=== PATIENT | male | born 1940 | race Caucasian/White ===

== ENCOUNTER 2017-09-22 23:30 | Observation (INO) | payer MEDICARE ==
[~2017-09-22] VITALS: Ht 167.6 cm; Wt 71.0 kg
[~2017-09-22 23:30] MED LIST: ALBU0.086 NEB; CIPR500T4 PO; DOCU1CAP39 PO; OXYC1SOL5 PO
[2017-09-22] MEDS ORDERED: IOHEXOL 350 MG/ML 10 ML VIAL (for RAD DIAG) IVCONTRAST ONE (23:31)
[2017-09-22 23:35] VITALS: BP 150/90; PULSE 100; RESP 28; TEMP 97.6; O2SAT 86
[2017-09-23] VITALS (12 sets, daily range): BP systolic 114–171; BP diastolic 56–78; PULSE 80–111; RESP 18–24; TEMP 96.1–98.4; O2SAT 91–100
[2017-09-23] MEDS ORDERED: SODIUM CHLORIDE 0.9% FLUSH 10 ML FLUSH IVF PRN (00:15)
[2017-09-23] MEDS ORDERED: methylPREDNISolone SOD SUCC 125 MG/2 ML VIAL IV PUSH ONE (00:15)
[2017-09-23] MEDS: RESP: ALBUTEROL 2.5 MG/IPRATROPIUM 0.5 MG NEB (SCH) INH (00:24)
--- NOTE | 2017-09-23 00:35 | RADRPT ---
EXAM DATE/TIME: 09/23/2017 00:23 [facility] COMPARISON: CHEST PA & LAT, April 09, 2014, 8:03. CHEST SINGLE AP, June 10, 2015, 18:36. INDICATIONS : Shortness of breath. MEDICAL HISTORY : None. SURGICAL HISTORY : None. ENCOUNTER: Initial ACUITY: 1 day PAIN SCORE: 0/10 LOCATION: Bilateral chest FINDINGS: The heart size is normal. The lungs are hyperinflated. There is a 2 cm focal consolidation or mass se en in the left perihilar region. No effusion is seen. CONCLUSION: 1. Hyperinflated lungs. 2. Suspected 2 cm focal consolidation or mass in the left perihilar region. Wilfredo Colindres MD on September 23, 2017 at 0:29 Board Certified Radiologist. This report was verified electronically.
--- NOTE | 2017-09-23 00:47 | PD ---
HPI Chief Complaint: Respiratory Distress Time Seen by Provider: 23:56 Travel History International Travel<30 days: No Contact w/Intl Traveler<30days: No Traveled to known affect area: No History of Present Illness HPI The patient is a 76 year old male who presents to the [facility] emergency department with a history of worsening shortness of breath that began 3 weeks ago. The patient reports having a history of severe COPD. He reports that he was previously on ipratropium with his albuterol, however this was discontinued when he developed urinary retention. He reports that since then his COPD in general seems to be worse. He reports that he has had a dry cough that is been no worse than usual. He denies having any productivity to the cough. He denies having any fevers or chills. He denies having any chest pain. He reports that over the last 4 months he has had lower extremity edema. He denies having ultrasound to evaluate for possible DVT. He denies any prior history of PE or DVT. He denies any prior history of coronary artery disease or congestive heart failure. He reports that he does continue to smoke whenever he can get a hold of the cigarette. His last cigarette was one week ago. On review of systems otherwise, the patient denies having any neck pain, chest pain, abdominal pain, vomiting, diarrhea, urinary symptoms, or neurologic symptoms. [facility] Past Medical History Narrative Medical The patient's past medical history is significant for by 9 prosthetic hypertrophy status post prostatectomy, history of COPD, hypertension, history of pneumonia, depression, prior history of subdural hemorrhage Asthma: No Autoimmune Disease: No Heart Rhythm Problems: No Cancer: No Cardiovascular Problems: No High Cholesterol: No Chemotherapy: No Chest Pain: No Congestive Heart Failure: No COPD: Yes Cerebrovascular Accident: No Diabetes: No Endocrine: No Gastrointestinal Disorders: No GERD: No Genitourinary: Yes Headaches: No Hepatitis: No Hiatal Hernia: No Heparin Induced Thrombocytopen: No Hypertension: No Immune Disorder: No Implanted Vascular Access Dvce: No Kidney Stones: No Medical other: Yes (PNEUMONIA 15 YEARS- NOT HOSPITALIZED ) Musculoskeletal: No Neurologic: No Psychiatric: No Reproductive: No Respiratory: Yes (COPD) Immunizations Current: Yes Migraines: No Radiation Therapy: No Renal Failure: No Seizures: No Sickle Cell Disease: No Sleep Apnea: No Thyroid Disease: No Ulcer: No Tetanus Vaccination: Unknown Influenza Vaccination: Yes Past Surgical History Narrative Surgical The patient's past surgical history is significant for benign prostatic hypertrophy status post prostatectomy, history of cataract surgery Abdominal Surgery: No AICD: No Arteriovenous Shunt: No Cardiac Surgery: No Ear Surgery: No Endocrine Surgery: No Eye Surgery: Yes (RIGHT EYE ) Genitourinary Surgery: No Gynecologic Surgery: No Insulin Pump: No Joint Replacement: No Neurologic Surgery: No Oral Surgery: Yes (REAR MOLAR YEARS AGO REMOVED) Pacemaker: No Thoracic Surgery: No Other Surgery: Yes Social History Alcohol Use: No Tobacco Use: Yes (last cigarette last week) Substance Use: No Allergies-Medications (Allergen,Severity, Reaction): Coded Allergies: No Known Allergies (Unverified Allergy, Unknown, 09/23/17) Reported Meds & Prescriptions Reported Meds & Active Scripts Active Review of Systems Except as stated in HPI: all other systems reviewed are Neg General / Constitutional: No: Fever Eyes: No: Visual changes HENT: No: Headaches, Congestion Cardiovascular: Positive: Dyspnea on exertion, Edema, No: Chest Pain or Discomfort Respiratory: Positive: Cough, Shortness of Breath, Wheezing Gastrointestinal: No: Nausea, Vomiting, Diarrhea, Abdominal Pain Genitourinary: No: Dysuria Musculoskeletal: No: Pain Skin: No Rash Neurologic: No: Weakness, Focal Abnormalities, Change in Mentation, Slurred Speech, Sensory Disturbance Psychiatric: No: Depression Endocrine: No: Polydipsia Hematologic/Lymphatic: No: Easy Bruising Physical Exam Narrative General: The patient is a well-developed well-nourished male in no acute distress. Head and Neck exam: Head is normocephalic atraumatic. Eyes: EOMI, pupils are equal round and reactive to light. Nose: Midline septum with pink mucous membranes Mouth: Dentition unremarkable. Moist mucus membranes. Posterior oropharynx is not erythematous. No tonsillar hypertrophy. Uvula midline. Airway patent. Neck: No palpable lymphadenopathy. No nuchal rigidity. No thyromegaly. Cardiovascular: Regular rate and rhythm without murmurs, gallops, or rubs. Lungs: The patient has pursed lip breathing, prolonged expiratory phase of breathing, soft expiratory wheezes audible bilaterally. Decreased breath sounds in the bases. No rhonchi or crackles. The patient has no accessory muscle use noted. No tripoding. No paroxysmal abdominal breathing. Abdomen: Soft, without tenderness to palpation in all 4 quadrants of the abdomen. No guarding, rebound, or rigidity. Normal bowel sounds are audible. No tenderness on palpation of McBurney's point. Extremities: No clubbing or cyanosis. The patient has 2+ pitting edema bilateral lower extremities. 2+ pulses in all 4 extremities. No calf tenderness on palpation. Back: No costovertebral angle tenderness to palpation. Neurologic Exam: Grossly nonfocal. Skin Exam: No rash noted. Intact skin that is warm and dry. Data Data Last Documented VS Vital Signs Date Time Temp Pulse Resp B/P (MAP) Pulse Ox O2 Delivery O2 Flow Rate FiO2 09/23/17 02:20 91 22 145/78 (100) 98 Nasal Cannula 3.50 09/22/17 23:35 97.6 Orders Orders Complete Blood Count With Diff (09/23/17 00:09) Comprehensive Metabolic Panel (09/23/17 00:09) B-Type Natriuretic Peptide (09/23/17 00:09) Act Partial Throm Time (Ptt) (09/23/17 00:09) Prothrombin Time / Inr (Pt) (09/23/17 00:09) Magnesium (Mg) (09/23/17 00:09) Ckmb (Isoenzyme) Profile (09/23/17 00:09) Troponin I (09/23/17 00:09) Urinalysis - C+S If Indicated (09/23/17 00:09) Iv Access Insert/Monitor (09/23/17 00:09) Electrocardiogram (09/23/17 00:09) Ecg Monitoring (09/23/17 00:09) Oximetry (09/23/17 00:09) Oxygen Administration (09/23/17 00:09) Chest, Single Ap (09/23/17 00:09) Sodium Chloride 0.9% Flush (Ns Flush) (09/23/17 00:15) Methylprednisolone So Succ Inj (Solumedr (09/23/17 00:15) Albuterol-Ipratropium Neb (Duoneb Neb) (09/23/17 00:15) Us Leg Venous Doppler Bilat (09/23/17 00:19) Ct Pulmonary Angiogram (09/23/17 01:22) Levofloxacin 750 Mg Premix Inj (Levaquin (09/23/17 02:00) Iohexol 350 Inj (Omnipaque 350 Inj) (09/22/17 23:31) Admit Order (Ed Use Only) (09/23/17 02:36) Labs Laboratory Tests Test 09/23/17 00:35 White Blood Count 5.9 TH/MM3 Red Blood Count 6.30 MIL/MM3 Hemoglobin 17.6 GM/DL Hematocrit 56.8 % Mean Corpuscular Volume 90.2 FL Mean Corpuscular Hemoglobin 27.9 PG Mean Corpuscular Hemoglobin Concent 31.0 % Red Cell Distribution Width 17.0 % Platelet Count 116 TH/MM3 Mean Platelet Volume 9.1 FL Neutrophils (%) (Auto) 62.5 % Lymphocytes (%) (Auto) 15.0 % Monocytes (%) (Auto) 19.9 % Eosinophils (%) (Auto) 1.6 % Basophils (%) (Auto) 1.0 % Neutrophils # (Auto) 3.7 TH/MM3 Lymphocytes # (Auto) 0.9 TH/MM3 Monocytes # (Auto) 1.2 TH/MM3 Eosinophils # (Auto) 0.1 TH/MM3 Basophils # (Auto) 0.1 TH/MM3 CBC Comment DIFF FINAL Differential Comment Prothrombin Time 12.4 SEC Prothromb Time International Ratio 1.1 RATIO Activated Partial Thromboplast Time 28.0 SEC Blood Urea Nitrogen 34 MG/DL Creatinine 1.30 MG/DL Random Glucose 96 MG/DL Total Protein 7.4 GM/DL Albumin 3.2 GM/DL Calcium Level 8.6 MG/DL Magnesium Level 2.0 MG/DL Alkaline Phosphatase 86 U/L Aspartate Amino Transf (AST/SGOT) 24 U/L Alanine Aminotransferase (ALT/SGPT) 38 U/L Total Bilirubin 0.5 MG/DL Sodium Level 139 MEQ/L Potassium Level 5.0 MEQ/L Chloride Level 100 MEQ/L Carbon Dioxide Level 37.7 MEQ/L Anion Gap 1 MEQ/L Estimat Glomerular Filtration Rate 53 ML/MIN Total Creatine Kinase 58 U/L Troponin I 0.05 NG/ML B-Type Natriuretic Peptide 755 PG/ML MDM Medical Decision Making Medical Screen Exam Complete: Yes Emergency Medical Condition: Yes Medical Record Reviewed: Yes Differential Diagnosis COPD exacerbation, versus pneumothorax, versus pneumonia, versus new-onset congestive heart failure, versus acute coronary syndrome Narrative Course During the course of the patients emergency department visit, the patients history, examination, and differential diagnosis were reviewed with the patient. The patient was placed on a phototypesetting equipment monitor with oximetry and frequent blood pressure monitoring. The patient had IV access obtained and blood work sent for analysis. An ECG was done that shows a rhythm with a heart rate of 81 , with occasional ventricular premature complexes, QRS duration 90 ms, QTC 404 ms, no acute ST segment elevation or depression. The patient was initially provided DuoNeb 3, Solu-Medrol 125 mg IV, Levaquin 750 mg IV. The patients laboratory studies were reviewed and remarkable for a white count of 5.9, hemoglobin 17.6, platelets 116 with 19.9 monocytes, CMP is remarkable for CO2 of 37.7, BUN 34, GFR 53, BNP 755, PT 12.4, PTT 28 Radiology studies were reviewed and remarkable for a chest x-ray that shows hyperinflated lungs, suspected 2 cm focal consolidation or mass in the left perihilar region. Ultrasound of bilateral lower extremities reveals no evidence of DVT. CTA to rule out PE reveals no evidence of pulmonary embolism, 0.9 cm irregular mass in the anterior lateral right mid lung that is nonspecific and could be further evaluated with a PET CT. suspected chronic pleural and parenchymal changes in the upper lungs, suspected areas of atelectasis in the left base. The patients results were discussed with the patient, including the plan of care. I explained that further testing and/ or monitoring is indicated based on the patients history, examination, and/ or laboratory findings. Therefore, I recommended admission for additional evaluation. The patient expressed understanding and was agreeable with this plan. The patient was admitted to the hospital in stable condition and sent to a bed under the care of the [facility]. Physician Communication Physician Communication The patient's case including history, pertinent physical examination findings, and laboratory studies were discussed with Dr. Pichardo. It was agreed that the patient would be admitted to the [facility] service. Diagnosis Primary Impression: COPD exacerbation Additional Impression: Pneumonia involving left lung Qualified Codes: J18.9 - Pneumonia, unspecified organism Admitting Information Admitting Physician Requests: Admit Fidelia Whittaker MD Sep 23, 2017 00:47
[2017-09-23 01:05] LABS: AUTOMATED NEUTROPHIL # 3.7 TH/MM3 (1.8-7.7); BASOPHIL # 0.1 TH/MM3 (0-0.2); EOSINOPHIL # 0.1 TH/MM3 (0-0.4); EOSINOPHIL % 1.6 % (0.0-4.0); HEMATOCRIT 56.8 % (39.0-51.0); HEMO FLAGS DIFF FINAL; LYMPHOCYTE # 0.9 TH/MM3 (1.0-4.8); MEAN CELL VOLUME 90.2 FL (80.0-100.0); MEAN CORPUSCULAR HEMOGLOBIN 27.9 PG (27.0-34.0); MONO % 19.9 % (0.0-8.0); NEUT % 62.5 % (16.0-70.0); PLATELET COUNT 116 TH/MM3 (150-450); WHITE BLOOD COUNT 5.9 TH/MM3 (4.0-11.0)
[2017-09-23 01:19] LABS: ALT (GPT) 38 U/L (12-78); ANION GAP 1 MEQ/L (5-15); AST (GOT) 24 U/L (15-37); BICARBONATE 37.7 MEQ/L (21.0-32.0); BLOOD UREA NITROGEN 34 MG/DL (7-18); CHLORIDE 100 MEQ/L (98-107); GLOMERULAR FILTRATION RATE 53 ML/MIN (>89); SODIUM (NA) 139 MEQ/L (136-145)
[2017-09-23 01:23] LABS: ALKALINE PHOSPHATASE 86 U/L (45-117); TOTAL BILIRUBIN ADULT 0.5 MG/DL (0.2-1.0)
[2017-09-23 01:24] LABS: CREATINE KINASE 58 U/L (39-308)
[2017-09-23 01:33] LABS: INTERNATIONAL NORMALIZED RATIO 1.1 RATIO; PROTHROMBIN TIME - PATIENT 12.4 SEC (9.8-11.6)
--- NOTE | 2017-09-23 01:53 | RADRPT ---
EXAM DATE/TIME: 09/23/2017 01:22 [facility] COMPARISON: No previous studies available for comparison. INDICATIONS : Bilateral leg swelling. MEDICAL HISTORY : COPD. Dyspnea. SURGICAL HISTORY : Right eye surgery. Rear molar removed. ENCOUNTER: Initial ACUITY: 2 months PAIN SCORE: 2/10 LOCATION: Bilateral legs. TECHNIQUE: Venous ultrasound of the left and right leg was performed from the inguinal ligament to the proximal calf. Real-time, color Doppler and spectral tracing, compression and augmentation techniques were us ed. FINDINGS: RIGHT LEG: There is normal compressibility of the deep venous system from the inguinal region to the proximal ca lf. No echogenic clot is seen in the lumen of the common femoral, femoral, popliteal, and posterior tibial veins. There is a normal response of the venous system to proximal and distal augmentation an d respiration. LEFT LEG: There is normal compressibility of the deep venous system from the inguinal region to the proximal ca lf. No echogenic clot is seen in the lumen of the common femoral, femoral, popliteal, and posterior tibial veins. There is a normal response of the venous system to proximal and distal augmentation an d respiration. CONCLUSION: No DVT. Wilfredo Colindres MD on September 23, 2017 at 1:51 Board Certified Radiologist. This report was verified electronically.
[2017-09-23] MEDS ORDERED: LEVOFLOXACIN 750 MG PREMIX INJ 150 ML IV ONE (02:00)
--- NOTE | 2017-09-23 02:24 | RADRPT ---
EXAM DATE/TIME: 09/23/2017 01:51 [facility] COMPARISON: No previous studies available for comparison. INDICATIONS : Shortness of breath; rule out pulmonary embolus IV CONTRAST: 75 cc Omnipaque 350 (iohexol) IV RADIATION DOSE: 23.18 CTDIvol (mGy) MEDICAL HISTORY : Chronic obstructive pulmonary disease. SURGICAL HISTORY : Prostatectomy. ENCOUNTER: Initial ACUITY: 1 day PAIN SCALE: 3/10 LOCATION: chest TECHNIQUE: Volumetric scanning of the chest was performed using a pulmonary embolism protocol MIP images were re constructed. Using automated exposure control and adjustment of the mA and/or kV according to patien t size, radiation dose was kept as low as reasonably achievable to obtain optimal diagnostic quality images. DICOM format image data is available electronically for review and comparison. Follow-up recommendations for detected pulmonary nodules are based at a minimum on nodule size and pa tient risk factors according to Fleischner Society Guidelines. FINDINGS: PULMONARY ARTERIES: No filling defects are seen in the pulmonary arteries through the segmental level. LUNGS: There is prominent emphysematous change seen in the upper and mid lungs. There is relative sparing of the bases. There is chronic appearing pleural-parenchymal change the upper lungs. Calcified plaques are seen posteriorly in the upper lungs. There is a 0.9 cm irregular focal density in the anterior la teral mid right lung. There are multiple areas of suspected atelectasis or consolidation at the left base. PLEURAE: Calcified plaques are seen in the posterior upper lungs. MEDIASTINUM: There is good visualization of the great vessels of the middle mediastinum. No evidence of mediastin al or hilar adenopathy/mass. MUSCULOSKELETAL: Within normal limits for patient age. Coronary artery calcifications are present. MISCELLANEOUS: The visualized upper abdominal organs demonstrate no acute abnormality. CONCLUSION: 1. No pulmonary embolus. 2. Chronic emphysematous change. 3. 0.9 cm irregular mass in the anterior lateral right mid lung. This is nonspecific. This could be f urther evaluated with a PET CT study to determine if it is metabolically active. Alternatively, a kennedy rt term followup examination in 3 months could be performed. 4. Suspected chronic pleural and parenchymal changes in the upper lungs. 5. Suspected areas of atelectasis at the left base. Wilfredo Colindres MD on September 23, 2017 at 2:18 Board Certified Radiologist. This report was verified electronically.
[2017-09-23] MEDS ORDERED: RESP: ALBUTEROL 1.25 MG/3 ML NEB (PRN) NEB (02:45)
[2017-09-23] MEDS ORDERED: breathing treatment INH (03:24)
[2017-09-23 04:34] LABS: AUTOMATED NEUTROPHIL # 4.3 TH/MM3 (1.8-7.7); BASOPHIL % 0.4 % (0.0-2.0); EOSINOPHIL % 0.1 % (0.0-4.0); HEMATOCRIT 52.6 % (39.0-51.0); HEMO FLAGS DIFF FINAL; LYMPH % 3.3 % (9.0-44.0); LYMPHOCYTE # 0.1 TH/MM3 (1.0-4.8); MEAN CELL VOLUME 89.7 FL (80.0-100.0); MEAN CORPUSCULAR HEMOGLOBIN 27.5 PG (27.0-34.0); MEAN CORPUSCULAR HGB CONC 30.7 % (32.0-36.0); MONO % 2.3 % (0.0-8.0); NEUT % 93.9 % (16.0-70.0); PLATELET COUNT 124 TH/MM3 (150-450); RED BLOOD COUNT 5.87 MIL/MM3 (4.50-5.90); RED CELL DISTRIBUTION WIDTH 17.1 % (11.6-17.2); WHITE BLOOD COUNT 4.5 TH/MM3 (4.0-11.0)
[2017-09-23] MEDS: RESP: ALBUTEROL 2.5 MG/IPRATROPIUM 0.5 MG NEB (SCH) NEB ×3 (07:45→19:16)
--- NOTE | 2017-09-23 08:20 | HHI.HP ---
HPI Service [facility] Hospitalists Primary Care Physician Lorraine Clement Jr, MD Admission Diagnosis COPD exacerbation, lung mass, infiltrate Chief Complaint: progressive worsening SOB x 3 weeks Travel History International Travel<30 Days: No Contact w/Intl Traveler <30 Da: No Traveled to Known Affected Are: No History of Present Illness The patient is a 76 year old male with past medical history which includes Bronchiectasis, ? pulmonary fibrosis followed by Dr. Shields, COPD, BPH status post prostatectomy and subdural hematoma 2013. Patient presents to the [facility] emergency department due to worsening shortness of breath that began 3 weeks ago. Patient reports he is to the point that he has difficult walking back and forth to the bathroom due to shortness of breath. The patient reports having a history of severe COPD. PFT from 2014 reveals FEV1 31%. 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 He reports that he has had a dry nonproductive cough that is been no worse than his usual. He reports that over the last 4 months he has had lower extremity edema for which she is taking Lasix. Bilateral lower extremity ultrasound reveals no DVT. CT angiogram reveals no pulmonary embolism. He denies any prior history of coronary artery disease or congestive heart failure. He reports that he started smoking at age 3 and does continued to smoke up until one week ago. Patient denies having any fevers/chills, chest pain, abdominal pain, vomiting, diarrhea. Patient reports decreased appetite and weight loss over the last 3 weeks. Patient also report small are of erythema to penis if he does not wash the penis daily. Which has been an intermitted problem over the last 6 years. Review of Systems Constitutional: DENIES: Fatigue, Fever, Chills Eyes: DENIES: Blurred vision, Diplopia, Vision loss Respiratory: COMPLAINS OF: Cough, Shortness of breath, DENIES: Sputum production Cardiovascular: COMPLAINS OF: Lower Extremity Edema, DENIES: Chest pain, Dyspnea on Exertion Gastrointestinal: DENIES: Abdominal pain, Constipation, Diarrhea Neurologic: DENIES: Abnormal gait, Headache, Localized weakness, Speech Problems Psychiatric: DENIES: Anxiety, Confusion, Depression Past Family Social History Past Medical History Pulmonary fibrosis followed by Dr. Shields, COPD, BPH status post prostatectomy and subdural hematoma 2013 Past Surgical History Bilateral cataract surgery and open prostatectomy Reported Medications Aspirin 81 mg daily Lasix 20 mg by mouth twice a day Potassium 20 mEq by mouth daily Symbicort 2 puffs twice a day Ventolin rescue inhaler as needed Allergies: Coded Allergies: No Known Allergies (Unverified Allergy, Unknown, 09/23/17) Active Ordered Medications Current Medications Medications (Trade) Dose Ordered Sig/Svitlana Route Start Time Stop Time Status Last Admin (NS Flush) 2 ml UNSCH PRN IVF 09/23/17 00:15 (Duoneb Neb) 1 ampule Q6HR WHILE AWAKE NEB NEB 09/23/17 08:00 09/23/17 07:45 (Albuterol Neb) 1.25 mg Q2HR NEB PRN NEB 09/23/17 02:45 (SoluMEDROL INJ) 40 mg Q12HR IV PUSH 09/23/17 09:00 Family History Father secondary to stomach tumor Mother secondary to old age Social History Patient has a home where his disabled daughter lives and also has a girlfriend that he states with occasionally Denies EtOH use or illicit drug use Started smoking cigarettes at age 3 continued to smoke until 1 week ago Physical Exam Vital Signs Vital Signs Date Time Temp Pulse Resp B/P (MAP) Pulse Ox O2 Delivery O2 Flow Rate FiO2 09/23/17 07:47 100 Nasal Cannula 3.00 09/23/17 07:11 96.2 86 24 115/56 (75) 95 09/23/17 05:38 98.4 80 18 130/62 (84) 97 09/23/17 03:53 82 22 145/78 (100) 92 Nasal Cannula 3.50 09/23/17 03:38 98 Nasal Cannula 3.00 09/23/17 02:20 91 22 145/78 (100) 98 Nasal Cannula 3.50 09/23/17 01:08 92 Nasal Cannula 2.00 09/23/17 01:07 81 24 171/74 (106) 92 Nasal Cannula 2.00 09/23/17 00:00 Nasal Cannula 2.00 09/22/17 23:35 97.6 100 28 150/90 (110) 86 Room Air Physical Exam GENERAL: This is a thin, well-developed patient, in no apparent distress. SKIN: healing scab right forearm. small are of erythema noted on the penis < 2cm, no drainage or discharge noted HEAD: Atraumatic. Normocephalic. No temporal or scalp tenderness. EYES: Extraocular motions intact. No scleral icterus. No injection or drainage. CARDIOVASCULAR: Regular rate and rhythm RESPIRATORY: decreased through out with poor air entry GASTROINTESTINAL: Abdomen soft, non-tender, nondistended. MUSCULOSKELETAL: Extremities with 2+ edema. No joint tenderness, effusion, or edema noted. No calf tenderness. Negative Homans sign bilaterally. NEUROLOGICAL: Awake and alert. Cranial nerves II through XII intact. Motor and sensory grossly within normal limits. Five out of 5 muscle strength in all muscle groups. Normal speech. Laboratory Laboratory Tests Test 09/23/17 00:35 09/23/17 04:14 White Blood Count 5.9 4.5 Red Blood Count 6.30 5.87 Hemoglobin 17.6 16.1 Hematocrit 56.8 52.6 Mean Corpuscular Volume 90.2 89.7 Mean Corpuscular Hemoglobin 27.9 27.5 Mean Corpuscular Hemoglobin Concent 31.0 30.7 Red Cell Distribution Width 17.0 17.1 Platelet Count 116 124 Mean Platelet Volume 9.1 9.1 Neutrophils (%) (Auto) 62.5 93.9 Lymphocytes (%) (Auto) 15.0 3.3 Monocytes (%) (Auto) 19.9 2.3 Eosinophils (%) (Auto) 1.6 0.1 Basophils (%) (Auto) 1.0 0.4 Neutrophils # (Auto) 3.7 4.3 Lymphocytes # (Auto) 0.9 0.1 Monocytes # (Auto) 1.2 0.1 Eosinophils # (Auto) 0.1 0.0 Basophils # (Auto) 0.1 0.0 CBC Comment DIFF FINAL DIFF FINAL Differential Comment Prothrombin Time 12.4 Prothromb Time International Ratio 1.1 Activated Partial Thromboplast Time 28.0 Blood Urea Nitrogen 34 Creatinine 1.30 Random Glucose 96 Total Protein 7.4 Albumin 3.2 Calcium Level 8.6 Magnesium Level 2.0 Alkaline Phosphatase 86 Aspartate Amino Transf (AST/SGOT) 24 Alanine Aminotransferase (ALT/SGPT) 38 Total Bilirubin 0.5 Sodium Level 139 Potassium Level 5.0 Chloride Level 100 Carbon Dioxide Level 37.7 Anion Gap 1 Estimat Glomerular Filtration Rate 53 Total Creatine Kinase 58 Troponin I 0.05 B-Type Natriuretic Peptide 755 Date/Time Source Procedure Growth Status 09/23/17 03:05 Blood Peripheral Aerobic Blood Culture Pending Received 09/23/17 03:05 Blood Peripheral Anaerobic Blood Culture Pending Received Result Diagram: 09/23/17 0414 09/23/17 0035 Caprini VTE Risk Assessment Caprini VTE Risk Assessment: Mod/High Risk (score >= 2) Caprini Risk Assessment Model Point Value = 1 Point Value = 2 Point Value = 3 Point Value = 5 Age 41-60 Minor surgery BMI > 25 kg/m2 Swollen legs Varicose veins or History of unexplained or recurrent spontaneous Oral contraceptives or hormone replacement Sepsis (< 1 month) Serious lung disease, including pneumonia (< 1 month) Abnormal pulmonary function Acute myocardial infarction Congestive heart failure (< 1 month) History of inflammatory bowel disease Medical patient at bed rest Age 61-74 Arthroscopic surgery Major open surgery (> 45 min) Laparoscopic surgery (> 45 min) Malignancy Confined to bed (> 72 hours) Immobilizing plaster cast Central venous access Age >= 75 History of VTE Family history of VTE Factor V Leiden Prothrombin [id number] Lupus anticoagulant Anticardiolipin antibodies Elevated serum homocysteine Heparin-induced thrombocytopenia Other congenital or acquired thrombophilia Stroke (< 1 month) Elective arthroplasty Hip, pelvis, or leg fracture Acute spinal cord injury (< 1 month) Prophylaxis Regimen Total Risk Factor Score Risk Level Prophylaxis Regimen 0-1 Low Early ambulation 2 Moderate Order ONE of the following: *Sequential Compression Device (SCD) *Heparin 5000 units SQ BID 3-4 Higher Order ONE of the following medications: *Heparin 5000 units SQ TID *Enoxaparin/Lovenox 40 mg SQ daily (WT < 150 kg, CrCl > 30 mL/min) *Enoxaparin/Lovenox 30 mg SQ daily (WT < 150 kg, CrCl > 10-29 mL/min) *Enoxaparin/Lovenox 30 mg SQ BID (WT < 150 kg, CrCl > 30 mL/min) AND/OR *Sequential Compression Device (SCD) 5 or more Highest Order ONE of the following medications: *Heparin 5000 units SQ TID (Preferred with Epidurals) *Enoxaparin/Lovenox 40 mg SQ daily (WT < 150 kg, CrCl > 30 mL/min) *Enoxaparin/Lovenox 30 mg SQ daily (WT < 150 kg, CrCl > 10-29 mL/min) *Enoxaparin/Lovenox 30 mg SQ BID (WT < 150 kg, CrCl > 30 mL/min) AND *Sequential Compression Device (SCD) Assessment and Plan Problem List: (1) COPD exacerbation ICD Codes: J44.1 - COPD exacerbation Status: Acute Plan: COPD exacerbation Bronchiectasis Shortness of breath CT angiogram reveals no pulmonary embolism does however reveal chronic specific changes. 0.9 cm irregular mass in the anterior lateral mid right lung. This is nonspecific recommend follow-up evaluation with head CT study or follow-up CT in 3 months could be performed. Albuterol nebulizers every 2 hours as needed Duonebs nebs every 6 hours while awake Solu-Medrol 125 mg IV 1 given in emergency Department Cymetra 40 mg IV every 12 hours as Levaquin 7501 given in emergency department Will order 2 D echocardiogram to evaluate EF and Pulmonary pressure Walk test tomorrow to evaluate need for home oxygen Possible Pulmonary fibrosis followed by Dr. Shields Patient wears 2 L oxygen via nasal cannula at home Recommend patient continue outpatient follow-up with Dr. Shields once discharged Bilateral lower extremity edema Chronic Continue patient's home Lasix 20 mg by mouth twice a day with potassium supplementation Bilateral lower extremity ultrasound reviewed and negative for DVT Will order 2 D echocardiogram to evaluate EF and Pulmonary pressure Bactroban and nystatin to affected area on penis Q12H patient instructed to follow up with PCP if this does not resolve DVT prophylaxis with heparin SQ (2) Tobacco abuse ICD Codes: Z72.0 - Tobacco abuse Status: Acute Assessment and Plan Patient examined. Assessment and plan formulated with Jackie Dia PA-C. I agree with the above. copd exacerbation. walk test. cont steroid/nebs echo pending. Jackie Dia Sep 23, 2017 08:20 Guerrero Polanco MD Sep 23, 2017 12:42
--- NOTE | 2017-09-23 08:28 | EKG ---
Date Performed: 09/23/2017 Time Performed: 01:04:22 PTAGE: 76 years EKG: Sinus rhythm WITH OCCASIONAL VENTRICULAR PREMATURE COMPLEXES WITH FREQUENT SUPRAVENTRICULAR PREMATURE COMPLEXES P OSSIBLE ARM LEAD REVERSAL ANTEROSEPTAL MYOCARDIAL INFARCTION PREVIOUS TRACING : 09/29/2015 14.30 Compared to previous tracing, possible arm lead rever andriy and PVC is now present. DOCTOR: Christian Garcia Interpretating Date/Time 09/23/2017 08:27:35
[2017-09-23] MEDS ORDERED: methylPREDNISolone SOD SUCC 40 MG/1 ML VIAL IV PUSH SCH (09:00)
[2017-09-23] MEDS ORDERED: POTA-163 PO (09:50)
[2017-09-23] MEDS ORDERED: SYMB160A INH (09:50)
[2017-09-23] MEDS ORDERED: ASPI-516 CHEW (09:50)
[2017-09-23] MEDS ORDERED: FURO1TAB62 PO (09:50)
[2017-09-23] MEDS: BUDESONIDE-FORMOTEROL 160/4.5 MCG INHALER INH SCH ×2 (10:00→20:38)
[2017-09-23] MEDS: methylPREDNISolone SOD SUCC 125 MG/2 ML VIAL IV PUSH SCH ×2 (13:32→20:38)
[2017-09-23] MEDS ORDERED: OXYGENDME NAS.CANULA (15:52)
[2017-09-23] MEDS ORDERED: OXYGENTANK NAS.CANULA (15:52)
[2017-09-23] MEDS: MUPIROCIN 2% OINT 22 GM TUBE TOPICAL SCH (20:38)
[2017-09-23] MEDS: HEPARIN SODIUM - SQ 10,000 UNITS/ML VIAL SQ SCH (20:38)
[2017-09-23] MEDS: FUROSEMIDE 20 MG TAB PO SCH (20:38)
[2017-09-23] MEDS: NYSTATIN 100,000 UNIT/GM CREAM 15 GM TOPICAL SCH (20:39)
[2017-09-24] MEDS: methylPREDNISolone SOD SUCC 125 MG/2 ML VIAL IV PUSH SCH ×3 (02:29→21:11)
[2017-09-24 04:51] VITALS: BP 134/54; PULSE 92; RESP 18; TEMP 97.8
[2017-09-24 05:10] LABS: BLOOD, URINE NEG (NEG); GLUCOSE,URINE NEG (NEG); HYALINE CAST, URINE 1 /lpf (RARE); KETONE, URINE NEG (NEG); MUCUS URINE FEW /lpf (OCC); NITRITE,URINE NEG (NEG); URINE COLOR LIGHT-YELLOW (YELLW/STRAW)
[2017-09-24 05:12] LABS: COMMENT (UR) CULT NOT INDICATED; CULTURE IF INDICATED CULT NOT INDICATED
[2017-09-24 07:21] VITALS: BP 106/58; PULSE 73; RESP 20; TEMP 98; O2SAT 95
[2017-09-24] MEDS: BUDESONIDE-FORMOTEROL 160/4.5 MCG INHALER INH SCH ×2 (08:08→21:00)
[2017-09-24] MEDS: FUROSEMIDE 20 MG TAB PO SCH ×2 (08:09→21:11)
[2017-09-24] MEDS: HEPARIN SODIUM - SQ 10,000 UNITS/ML VIAL SQ SCH ×2 (08:11→21:11)
[2017-09-24] MEDS: MUPIROCIN 2% OINT 22 GM TUBE TOPICAL SCH ×2 (08:12→21:14)
[2017-09-24] MEDS: NYSTATIN 100,000 UNIT/GM CREAM 15 GM TOPICAL SCH ×2 (08:12→21:14)
[2017-09-24] MEDS: RESP: ALBUTEROL 2.5 MG/IPRATROPIUM 0.5 MG NEB (SCH) NEB ×3 (08:26→20:23)
[2017-09-24 08:28] VITALS: O2SAT 94
--- NOTE | 2017-09-24 08:41 | HHI.PR ---
Subjective Remarks Patient reports his breathing and BLE edema have both improved since yesterday now report feeling unsteady on his feet Objective Vitals Vital Signs Date Time Temp Pulse Resp B/P (MAP) Pulse Ox O2 Delivery O2 Flow Rate FiO2 09/24/17 08:28 94 Nasal Cannula 3.00 09/24/17 07:21 98.0 73 20 106/58 (74) 95 09/24/17 04:51 97.8 92 18 134/54 (80) 09/24/17 03:36 Nasal Cannula 3.00 09/23/17 22:10 97.8 108 18 118/57 (77) 91 09/23/17 19:17 94 Nasal Cannula 3.00 09/23/17 15:13 96 09/23/17 15:05 96.1 108 24 114/56 (75) 93 09/23/17 14:57 3.00 09/23/17 12:25 97.5 111 20 118/61 (80) 95 Result Diagram: 09/23/17 0414 09/23/17 0035 Other Results Laboratory Tests Test 09/23/17 00:35 09/23/17 04:14 09/24/17 04:33 White Blood Count 5.9 TH/MM3 4.5 TH/MM3 Red Blood Count 6.30 MIL/MM3 5.87 MIL/MM3 Hemoglobin 17.6 GM/DL 16.1 GM/DL Hematocrit 56.8 % 52.6 % Mean Corpuscular Volume 90.2 FL 89.7 FL Mean Corpuscular Hemoglobin 27.9 PG 27.5 PG Mean Corpuscular Hemoglobin Concent 31.0 % 30.7 % Red Cell Distribution Width 17.0 % 17.1 % Platelet Count 116 TH/MM3 124 TH/MM3 Mean Platelet Volume 9.1 FL 9.1 FL Neutrophils (%) (Auto) 62.5 % 93.9 % Lymphocytes (%) (Auto) 15.0 % 3.3 % Monocytes (%) (Auto) 19.9 % 2.3 % Eosinophils (%) (Auto) 1.6 % 0.1 % Basophils (%) (Auto) 1.0 % 0.4 % Neutrophils # (Auto) 3.7 TH/MM3 4.3 TH/MM3 Lymphocytes # (Auto) 0.9 TH/MM3 0.1 TH/MM3 Monocytes # (Auto) 1.2 TH/MM3 0.1 TH/MM3 Eosinophils # (Auto) 0.1 TH/MM3 0.0 TH/MM3 Basophils # (Auto) 0.1 TH/MM3 0.0 TH/MM3 CBC Comment DIFF FINAL DIFF FINAL Differential Comment Prothrombin Time 12.4 SEC Prothromb Time International Ratio 1.1 RATIO Activated Partial Thromboplast Time 28.0 SEC Blood Urea Nitrogen 34 MG/DL Creatinine 1.30 MG/DL Random Glucose 96 MG/DL Total Protein 7.4 GM/DL Albumin 3.2 GM/DL Calcium Level 8.6 MG/DL Magnesium Level 2.0 MG/DL Alkaline Phosphatase 86 U/L Aspartate Amino Transf (AST/SGOT) 24 U/L Alanine Aminotransferase (ALT/SGPT) 38 U/L Total Bilirubin 0.5 MG/DL Sodium Level 139 MEQ/L Potassium Level 5.0 MEQ/L Chloride Level 100 MEQ/L Carbon Dioxide Level 37.7 MEQ/L Anion Gap 1 MEQ/L Estimat Glomerular Filtration Rate 53 ML/MIN Total Creatine Kinase 58 U/L Troponin I 0.05 NG/ML B-Type Natriuretic Peptide 755 PG/ML Urine Color LIGHT-YELLOW Urine Turbidity CLEAR Urine pH 5.0 Urine Specific [place] 1.008 Urine Protein NEG mg/dL Urine Glucose (UA) NEG mg/dL Urine Ketones NEG mg/dL Urine Occult Blood NEG Urine Nitrite NEG Urine Bilirubin NEG Urine Urobilinogen LESS THAN 2.0 MG/DL Urine Leukocyte Esterase NEG Urine RBC 1 /hpf Urine WBC LESS THAN 1 /hpf Urine Hyaline Casts 1 /lpf Urine Mucus FEW /lpf Microscopic Urinalysis Comment CULT NOT INDICATED Imaging Last Impressions CT Angiography 09/23/17 0122 Signed Impressions: Service Date/Time: Saturday, September 23, 2017 01:51 - CONCLUSION: 1. No pulmonary embolus. 2. Chronic emphysematous change. 3. 0.9 cm irregular mass in the anterior lateral right mid lung. This is nonspecific. This could be further evaluated with a PET CT study to determine if it is metabolically active. Alternatively, a short term followup examination in 3 months could be performed. 4. Suspected chronic pleural and parenchymal changes in the upper lungs. 5. Suspected areas of atelectasis at the left base. Wilfredo Colindres MD Lower Extremity Ultrasound 09/23/17 0019 Signed Impressions: Service Date/Time: Saturday, September 23, 2017 01:22 - CONCLUSION: No DVT. Wilfredo Colindres MD Chest X-Ray 09/23/17 0009 Signed Impressions: Service Date/Time: Saturday, September 23, 2017 00:23 - CONCLUSION: 1. Hyperinflated lungs. 2. Suspected 2 cm focal consolidation or mass in the left perihilar region. Wilfredo Colindres MD Objective Remarks GENERAL: This is a thin, well-developed patient, in no apparent distress. CARDIOVASCULAR: Regular rate and rhythm RESPIRATORY: improved from yesterday now with more air movement, no wheezing, rhonchi or rales GASTROINTESTINAL: Abdomen soft, non-tender, nondistended. MUSCULOSKELETAL: Extremities with 2+ edema. No joint tenderness, effusion, or edema noted. No calf tenderness. Negative Homans sign bilaterally. NEUROLOGICAL: Awake and alert. No focal deficits. Motor and sensory grossly within normal limits. 4-5 out of 5 muscle strength in all muscle groups. Normal speech. A/P Problem List: (1) COPD exacerbation ICD Codes: J44.1 - COPD exacerbation Status: Acute Plan: COPD exacerbation Bronchiectasis Shortness of breath CT angiogram reveals no pulmonary embolism does however reveal chronic specific changes. 0.9 cm irregular mass in the anterior lateral mid right lung. This is nonspecific recommend follow-up evaluation with head CT study or follow-up CT in 3 months could be performed. Albuterol nebulizers every 2 hours as needed Duonebs nebs every 6 hours while awake Solu-Medrol 125 mg IV 1 given in emergency Department Solu-medrol 60 mg Q6H -> (09/24) change to Q12H Levaquin 7501 given in emergency department 2 D echocardiogram pending Walk test (09/24) to evaluate need for home oxygen- oxygen saturation dropped to 79% on room air Possible Pulmonary fibrosis followed by Dr. Shields Patient has worn oxygen at home in the past but no longer has home oxygen Recommend patient continue outpatient follow-up with Dr. Shields once discharged Bilateral lower extremity edema Chronic Continue patient's home Lasix 20 mg by mouth twice a day Bilateral lower extremity ultrasound reviewed and negative for DVT 2 D echocardiogram pending Unstable gate PT consulted Bactroban and nystatin to affected area on penis Q12H patient instructed to follow up with PCP if this does not resolve DVT prophylaxis with heparin SQ (2) Tobacco abuse ICD Codes: Z72.0 - Tobacco abuse Status: Acute Jackie Dia Sep 24, 2017 08:41
[2017-09-24] MEDS ORDERED: POTASSIUM CHLORIDE 20 MEQ CONTROLLED RELEASE TAB PO SCH (09:00)
[2017-09-24 11:18] VITALS: BP 119/58; PULSE 88; RESP 20; TEMP 98.3; O2SAT 95
[2017-09-24 13:33] LABS: BICARBONATE 37.4 MEQ/L (21.0-32.0); POTASSIUM 4.5 MEQ/L (3.5-5.1)
--- NOTE | 2017-09-24 14:42 | ECHRPT ---
Indication: Shortness of breath CONCLUSIONS The left ventricular systolic function is normal with an estimated ejection fraction in the range of 55-60%. Regional wall motion abnormalities cannot be excluded on the basis of this study. Wall thickness is measured at the upper limits of normal. Normal left ventricular size. The right ventricle is moderately dilated. The right ventricular systoilc function is moderately decreased. The right atrial size is moderately dilated. The aortic valve is not well visualized. Poorly visualized approximately 5 x 5 mm slightly calcifie d, globular echodensity on the aortic surface of one of the aortic leaflets, cannot rule out vegetation. There is mild tricuspid regurgitation. The estimated pulmonary arterial pressure is 57 mmHg. BP: 134 / 54 HR: 92 Rhythm: Other MEASUREMENTS (Male / Female) Normal Values Technical Quality:Fair 2D ECHO LV Diastolic Diameter PLAX 3.9 cm 4.2 - 5.9 / 3.9 - 5.3 cm LV Systolic Diameter PLAX 3.0 cm IVS Diastolic Thickness 1.1 cm 0.6 - 1.0 / 0.6 - 0.9 cm LVPW Diastolic Thickness 1.1 cm 0.6 - 1.0 / 0.6 - 0.9 cm LV Relative Wall Thickness 0.6 LVOT Diameter 2.0 cm M-MODE Aortic Root Diameter MM 2.1 cm LA Systolic Diameter MM 2.7 cm LA Ao Ratio MM 1.3 AV Cusp Separation MM 1.5 cm DOPPLER AV Peak Velocity 148.0 cm/s AV Peak Gradient 8.8 mmHg LVOT Peak Velocity 56.8 cm/s LVOT Peak Gradient 1.3 mmHg AV Area Cont Eq pk 1.2 cm LV E' Lateral Velocity 9.6 cm/s LV E' Septal Velocity 9.1 cm/s TR Peak Velocity 343.0 cm/s TR Peak Gradient 47.1 mmHg Right Atrial Pressure 10.0 mmHg Pulmonary Artery Systolic Pressu 57.1 mmHg Right Ventricular Systolic Press 57.1 mmHg PV Peak Velocity 100.0 cm/s PV Peak Gradient 4.0 mmHg FINDINGS LEFT VENTRICLE The left ventricular systolic function is normal with an estimated ejection fraction in the range of 55-60%. Regional wall motion abnormalities cannot be excluded on the basis of this study. The septum appear s flattened in both systole and diastole suggestive elevated right ventricular end diastolic pressure. Wall thickness is measured at the upper limits of normal. Normal left ventricular size. RIGHT VENTRICLE The right ventricle is moderately dilated. The right ventricular systoilc function is moderately decreased. LEFT ATRIUM The left atrial size is normal. RIGHT ATRIUM The right atrial size is moderately dilated. ATRIAL SEPTUM Normal atrial septal thickness without atrial level shunting by limited color doppler interrogation. AORTA The aortic root and proximal ascending aorta are normal in size on limited imaging. MITRAL VALVE Structurally normal mitral valve. No mitral valve stenosis or regurgitation. AORTIC VALVE The aortic valve is not well visualized. Poorly visualized approximately 5 x 5 mm slightly calcifie d, globular echodensity on the aortic surface of one of the aortic leaflets, cannot rule out vegetation. TRICUSPID VALVE There is mild tricuspid regurgitation. The estimated pulmonary arterial pressure is 57 mmHg. PULMONARY VALVE No pulmonary valve regurgitation or stenosis. VESSELS The inferior vena cava is normal in size. PERICARDIUM No pericardial effusion. Christian Garcia MD (Electronically Signed) Final Date:24 September 2017 14:41 Amended: 24 September 2017 14:49
[2017-09-24 18:30] VITALS: BP 121/59; PULSE 95; RESP 20; TEMP 98.3; O2SAT 96
[2017-09-24 20:26] VITALS: O2SAT 95
[2017-09-25 01:30] VITALS: BP 133/69; PULSE 84; RESP 18; TEMP 97.5; O2SAT 94
[2017-09-25 04:01] VITALS: BP 117/58; PULSE 79; RESP 18; TEMP 97.8; O2SAT 97
[2017-09-25 07:14] VITALS: BP 115/55; PULSE 65; RESP 18; TEMP 97.3; O2SAT 98
[2017-09-25] MEDS: RESP: ALBUTEROL 2.5 MG/IPRATROPIUM 0.5 MG NEB (SCH) NEB (08:02)
[2017-09-25 08:04] VITALS: O2SAT 94
[2017-09-25 08:43] LABS: BICARBONATE 40.6 MEQ/L (21.0-32.0); POTASSIUM 4.6 MEQ/L (3.5-5.1)
[2017-09-25] MEDS: BUDESONIDE-FORMOTEROL 160/4.5 MCG INHALER INH SCH (08:44)
[2017-09-25] MEDS: HEPARIN SODIUM - SQ 10,000 UNITS/ML VIAL SQ SCH (08:44)
[2017-09-25] MEDS: FUROSEMIDE 20 MG TAB PO SCH (08:44)
[2017-09-25] MEDS: MUPIROCIN 2% OINT 22 GM TUBE TOPICAL SCH (08:45)
[2017-09-25] MEDS: methylPREDNISolone SOD SUCC 125 MG/2 ML VIAL IV PUSH SCH (08:45)
[2017-09-25] MEDS: NYSTATIN 100,000 UNIT/GM CREAM 15 GM TOPICAL SCH (08:45)
[2017-09-25 11:41] VITALS: BP 131/73; PULSE 112; RESP 18; TEMP 97.4; O2SAT 94
[2017-09-25] MEDS ORDERED: IPRASOL INH (13:03)
[2017-09-25] MEDS ORDERED: PRED10 PO ×2 (13:03→13:29)
--- NOTE | 2017-09-25 13:04 | HHI.DCPOC ---
Discharge Care Plan Diagnosis: (1) COPD exacerbation Goals to Promote Your Health * To prevent worsening of your condition and complications * To maintain your health at the optimal level Directions to Meet Your Goals Take your medications as prescribed Follow your dietary instruction Follow activity as directed Keep your appointments as scheduled Take your immunizations and boosters as scheduled If your symptoms worsen call your PCP, if no PCP go to Urgent Care Center or Emergency Room Smoking is Dangerous to Your Health. Avoid second hand smoke Call the 24-hour hour crisis hotline for domestic abuse at Thais Lopez Sep 25, 2017 13:04
--- NOTE | 2017-09-25 13:27 | HHI.PR ---
Subjective Remarks Pt is anxious to go home today He is still requiring supplemental O2 but does not want to take the large tank home due to there not being enough space in his house for the equipment. Objective Vitals Vital Signs Date Time Temp Pulse Resp B/P (MAP) Pulse Ox O2 Delivery O2 Flow Rate FiO2 09/25/17 11:41 97.4 112 18 131/73 (92) 94 09/25/17 08:04 94 Nasal Cannula 2.00 09/25/17 07:14 97.3 65 18 115/55 (75) 98 09/25/17 04:01 97.8 79 18 117/58 (77) 97 09/25/17 01:30 97.5 84 18 133/69 (90) 94 09/24/17 20:26 95 Nasal Cannula 3.00 09/24/17 18:30 98.3 95 20 121/59 (79) 96 Result Diagram: 09/23/17 0414 09/25/17 0621 Other Results Laboratory Tests Test 09/24/17 04:33 09/24/17 12:40 09/25/17 06:21 Urine Color LIGHT-YELLOW Urine Turbidity CLEAR Urine pH 5.0 Urine Specific [place] 1.008 Urine Protein NEG mg/dL Urine Glucose (UA) NEG mg/dL Urine Ketones NEG mg/dL Urine Occult Blood NEG Urine Nitrite NEG Urine Bilirubin NEG Urine Urobilinogen LESS THAN 2.0 MG/DL Urine Leukocyte Esterase NEG Urine RBC 1 /hpf Urine WBC LESS THAN 1 /hpf Urine Hyaline Casts 1 /lpf Urine Mucus FEW /lpf Microscopic Urinalysis Comment CULT NOT INDICATED Blood Urea Nitrogen 29 MG/DL 33 MG/DL Creatinine 1.06 MG/DL 0.93 MG/DL Random Glucose 159 MG/DL 94 MG/DL Calcium Level 8.5 MG/DL 8.5 MG/DL Sodium Level 136 MEQ/L 137 MEQ/L Potassium Level 4.5 MEQ/L 4.6 MEQ/L Chloride Level 94 MEQ/L 93 MEQ/L Carbon Dioxide Level 37.4 MEQ/L 40.6 MEQ/L Anion Gap 5 MEQ/L 3 MEQ/L Estimat Glomerular Filtration Rate 68 ML/MIN 79 ML/MIN Imaging Last Impressions CT Angiography 09/23/17 0122 Signed Impressions: Service Date/Time: Saturday, September 23, 2017 01:51 - CONCLUSION: 1. No pulmonary embolus. 2. Chronic emphysematous change. 3. 0.9 cm irregular mass in the anterior lateral right mid lung. This is nonspecific. This could be further evaluated with a PET CT study to determine if it is metabolically active. Alternatively, a short term followup examination in 3 months could be performed. 4. Suspected chronic pleural and parenchymal changes in the upper lungs. 5. Suspected areas of atelectasis at the left base. Wilfredo Colindres MD Lower Extremity Ultrasound 09/23/1718 Signed Impressions: Service Date/Time: Saturday, September 23, 2017 01:22 - CONCLUSION: No DVT. Wilfredo Colindres MD Chest X-Ray 09/23/178 Signed Impressions: Service Date/Time: Saturday, September 23, 2017 00:23 - CONCLUSION: 1. Hyperinflated lungs. 2. Suspected 2 cm focal consolidation or mass in the left perihilar region. Wilfredo Colindres MD Objective Remarks GENERAL: This is a thin, well-developed patient, in no apparent distress. CARDIO: Regular rate and rhythm RESP: improved aeration, no wheezing, rhonchi or rales ABD: +BS, soft, non-tender, nondistended. EXT: Extremities with 2+ edema. A/P Problem List: (1) COPD exacerbation ICD Codes: J44.1 - COPD exacerbation Status: Acute Plan: The patient is a 76 year old male with past medical history which includes Bronchiectasis, ?pulmonary fibrosis followed by Dr. Shields, COPD, BPH s/p prostatectomy and subdural hematoma 2013. Patient presented to the [facility] emergency department due to worsening shortness of breath that began 3 weeks ago. Patient reports he is to the point that he has difficult walking back and forth to the bathroom due to shortness of breath. COPD exacerbation Bronchiectasis Shortness of breath - CT angiogram (09/23) --> No pulmonary embolism does however reveal chronic specific changes. 0.9 cm irregular mass in the anterior lateral mid right lung. This is nonspecific recommend follow-up evaluation with head CT study or follow-up CT in 3 months could be performed. - Albuterol nebulizers every 2 hours as needed - Duonebs nebs every 6 hours while awake - Pt was given Solu-Medrol 125 mg IV 1 given in emergency Department - He was continued on Solu-medrol 60 mg Q6H. Changed to Q12H on 09/24. - Pt to be discharged on a prednisone taper of 30mg po BID x 5 days --> 20mg po BID x 4 days --> 20mg po once daily x 3 days --> 10mg po once daily x 3 days , then stop - Pt was given Levaquin 7501 given in emergency department - 2D echo (09/24) --> EF 55-60%, regional wall motion abnormalities cannot be excluded based on this study, wall thickness is measured at the upper limits of normal, RV is moderately dilated, RV systolic function is moderately decreased, RA is moderately dilated, the aortic valve is not well visualized, poorly visualized approximately 5 x 5mm slightly calcified, globular echodensity on the aortic surface of one of the aortic leaflets, mild tricuspid valve regurgitation, estimated PA pressure 57mmHg - Walk test (09/24) to evaluate need for home oxygen- oxygen saturation dropped to 79% on room air. Pt reports that he will not likely use supplemental O2 at home all the time and does not want to take the O2 home because he does not have place in his house for the tanks and concentrator. - Pt will need to followup with his PCP, Dr. Perdomo, in [address] Perdomo's office to inform him of the echo results. The pt has not had any symptoms related to a possible heart valve vegetation. The pt refuses to stay for any further workup or evaluation. - Pt will need to followup with Dr. Shields in 2 weeks Possible Pulmonary fibrosis followed by Dr. Shields - Patient has worn oxygen at home in the past but no longer has home oxygen - Recommend patient continue outpatient follow-up with Dr. Shields once discharged Bilateral lower extremity edema - Chronic - Continue patient's home Lasix 20 mg by mouth twice a day - Bilateral lower extremity ultrasound reviewed and negative for DVT - 2D echo results as above Unstable gate - PT consulted Bactroban and nystatin to affected area on penis Q12H patient instructed to follow up with PCP if this does not resolve (2) Tobacco abuse ICD Codes: Z72.0 - Tobacco abuse Status: Acute Assessment and Plan Patient examined. Assessment and plan formulated with Thais Lopez PA-C. I agree with the above. I worked with the pt for an hour as he was mad about wanting a portable concentrator. The [employer] rep is here and I spoke with cp rep Tianna. This device is not covered. Tianna will work with him to find one online. The pt is noncooperative and easily angers. He says he will not wear it continuously anyway.. PCP office called about abnormal echo and abnormal CT. pt wants to leave. f/u pcp. Thais Lopez Sep 25, 2017 13:27 Guerrero Polanco MD Sep 25, 2017 13:43
[2017-09-25] MEDS ORDERED: NYST15T TOPICAL (13:29)
[2017-09-25] MEDS ORDERED: Mupirocin 2% Oint TOPICAL (13:29)
== END 2017-09-25 15:08 | disposition home or self-care (01) ==
LOC: NEPC 23:30 → NEDA 09-23 02:39 → INTOOBSV 09-23 02:39 → NEPFCDU 09-23 04:05
PROVIDERS: ADMIT Hospitalist; ATTEND Hospitalist
DX: J44.1 Chronic obstructive pulmonary disease with (acute) exacerbation (principal); J44.0 Chronic obstructive pulmonary disease with (acute) lower respiratory infection; J84.10 Pulmonary fibrosis, unspecified; R60.0 Localized edema; I10 Essential (primary) hypertension; R94.31 Abnormal electrocardiogram [ECG] [EKG]; N40.0 Benign prostatic hyperplasia without lower urinary tract symptoms; Z72.0 Tobacco use; Z87.01 Personal history of pneumonia (recurrent); Z99.81 Dependence on supplemental oxygen; Z90.79 Acquired absence of other genital organ(s)
CPT/HCPCS: 71010; 71275; 80048; 80053; 81001; 82550; 83735; 83880; 84484; 85025; 85610; 85730; 87040; 93005; 93306; 93970; 94620; 94640; 94664; 96372; 96374; 96375; 96376; 97161; 97530; 99285; G0378; G8987; G8988; J1644; J1956; J2920; J2930; Q9967